=== PATIENT | male | born 1990 | race Caucasian/White ===

== ENCOUNTER 2022-08-13 18:29 | Emergency (ER) | payer OTHER ==
[~2022-08-13] VITALS: Ht 172.7 cm; Wt 68.5 kg
[2022-08-13] MEDS ORDERED: ACULAR LS5 ML OD (22:22)
== END 2022-08-13 22:46 | disposition home or self-care (01) ==
LOC: ED 18:29
DX: T15.01XA Foreign body in cornea, right eye, initial encounter (principal); W45.8XXA Other foreign body or object entering through skin, initial encounter
CPT/HCPCS: 65222; 99283-25

== ENCOUNTER 2022-09-02 10:15 | Observation (INO) | payer OTHER ==
[~2022-09-02] VITALS: Ht 185.4 cm; Wt 88.0 kg
[~2022-09-02 10:15] MED LIST: ACULAR LS5 ML OD
--- OUTSIDE RECORDS SUMMARY | 2022-09-02 10:22 | XMS ---
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 Ligia has no Care Guidelines for this patient. Andre VISIT COUNT ([address] [facility] TOTAL 2 NOTE: Visits indicate total known visits. ED/C VISIT TRACKING (12 MO.) 09/02/2022 10:16 [facility] [place] TYPE: Emergency COMPLAINT: - R ARMPIT PAIN 08/13/2022 18:[address] [facility] [place] TYPE: Emergency COMPLAINT: - R EYE INJ DIAGNOSES: - Foreign body in cornea, right eye, initial encounter - Other foreign body or object entering through skin, initial encounter INPATIENT VISIT TRACKING (12 MO.) No inpatient visits to display in this time frame [id number]
--- NOTE | 2022-09-02 15:04 | NUR ---
RECIEVED HAND OFF REPORT FROM MARCIA HILL.
--- NOTE | 2022-09-02 15:46 | NUR ---
PT ARRIVED TO ROOM 114, VIA WHEELCHAIR W/ GROUP HOME GUARDS.
[2022-09-02] MEDS ORDERED: CELEXA10 MG PO (17:02)
[2022-09-02] MEDS ORDERED: MELATONIN1 MG PO (17:02)
[2022-09-02] MEDS ORDERED: OXYCODONE HCL5 MG PO (17:19)
--- NOTE | 2022-09-02 17:32 | NUR ---
MED REC COMPLETE
--- NOTE | 2022-09-02 19:19 | NUR ---
pt awake, alert and orineted, redness r upper shoulder, arm, axillary area and front R chest. chlorhenedine wipe down done. Anesthesis in room with pt. wearing wrist shackles, 2 EOCI guards in room. preop-post op expectations given verbally to pt. Semireceptive 1919 - Pt down to surgery at this time.
--- NOTE | 2022-09-02 20:11 | NUR ---
pt alert and oriented, drowsy, opens eyee easily, denies c/o pain or any discomofrt. On room air, clear lungs, post op cpox in place, Rabd TT draining bile colored scant amont, BARB with scant amount of ss drainage. ACticot dressing covered with opsite and 2 lap sites covered with gauze. lizett, denies passing gas, abd tender, soft. f/c draining dark colored oily orange colored urine. f/c not chronic. scds in place, Pt tolerating sips of fluids well, no emesis. Family in room.
--- NOTE | 2022-09-02 20:14 | NUR ---
09/02/222013 Bria Sandoval 2008-PATIENT ARRIVES TO PACU ON 8L VIA MASK. OPA IN PLACE. RESP EVEN AND UNLABORED. O2 SATS AT 100%. 2010-PATIENT IS NONAROUSABLE. O2 DECREASED TO 6L VIA MASK. OPA IN PLACE. RESP EVEN AND UNLABORED.
--- NOTE | 2022-09-02 20:30 | NUR ---
drowsy, IVf infusing took sips of fluids, IVF infusing w/o problems. Dressing to R axillary area with shadowinig ss drainage. red area warm to touch tender, edges marked. alert an oriented on room air, post op cpox, cooperative with assessment. 2EOCI guards in room
--- NOTE | 2022-09-02 21:47 | NUR ---
2104 - back to room 114 from PACU, drowsy, was medicated prior to moving back to [place], c/o pain R arm. R chest, arm, axillary area tender, red, edges marked. I&D to R axillary abscess covered w Iodoform/gauze covered wtih surgical tape and fernie draina in place. small amount of ss drainage noted. arm elevated in pillows above chest. IVF infusing LAC 2139 - medicated with Ibuprofen and sips of fluids, ice chips at bedside. continues to questions why he is not getting the same pain meds as he was in the custodial, clarified, and he goes back to the same question. explained several times, not very receptive. 2EOCI guards inroom.
--- NOTE | 2022-09-02 22:20 | NUR ---
Talked to Dr Soriano, clarification of diet, can be on regular diet and have Pharmacy configure the Vancomycin dosage.
--- NOTE | 2022-09-02 22:44 | NUR ---
c/o 10/10 R arm pain,medicated with dDilaudid 0.6mg IV. Right arm elevated in pillows above the heart. dressing axillary area intact, improved redness as per marking. area warm to touch, tender. dressing with old shadowing, water, apple juice and sandwich box given. 2 EOCI guards in room
--- NOTE | 2022-09-03 00:18 | NUR ---
PT UP TO EDGE OF BED AND STANDING UP, USED URINAL AND VOIDED LARGE AMOAUNT QS DARK YELLOW URINE. BACK TO BED, ON ROOM AIR, CPOX IN PLACE, MUCH IMPROVED EDEMA AND REDNASS NOTED BACK OF R ARM AND FROMT AREA, DRESSING WITH OLD DRAINAGE. ELEVATED, GOOD CMS. IVF INFUSING. SCDS IN PLACE, FLUIDS AT BEDSIDE, TOLERATED SANDWICH BOX CONTENTS AND JUICE, NO EMESIS. COOPERATIVE, CALMER, [address]
--- NOTE | 2022-09-03 01:29 | NUR ---
pt repositioned in bed, ivf infusing LAC, R arm elevated decreaesd edema and redness noted, dressing with old drainage. good CMS. medicated per c/o 07/03 R arm, with [place]. tolerating fluids well, snacks given on request. SCDS in place, wearing wrist and ankle metal restraints as per EOCI protocol, 2 EOCI guars in room
--- NOTE | 2022-09-03 04:15 | NUR ---
Pt awake, c/o 9/10 R arm pain, medicated with Ibuprofen R arm elevated in pillows, good cms, decreaed redness and edema, dressing with old drainage. moving arms, tender to touch. IVF infusing LAC. tolerating liquids and diet, repositions self in bed, has voided QS. wearing metal shackles wrists and ankles, voiding QS
--- NOTE | 2022-09-03 05:04 | NUR ---
PT HAD AN I&D R AXILLARY ABSCESS, WAS VERY RED EDEMATOUS AND TENDER TO TOUCH. CURRENTLY MUCH IMPROVED DECREAED REDNESS,ERYTHEMA ND TENDERNESS, DRESSING WITH SEROSANGUINEOUS DRAINAGE REINFORCED. GOOD CMS, MOVES ARM WELL. IVF INFUSING LAC, IV IS AN ULTRASOUND GUIDED IV SITE. NO ADVERSER EACTION TO IV ABX. R ARM ELEVATED WITH PILLOWS, HAS BEEN MEDICATED WITH NORCO,IBUPROFEN PO AND DILAUDID IV PER PAIN CONTROL WITH FAIR TO POOR PAIN CONTROL. TOLERATING LIQUIDS AND DIET WELL. SCDS IN PLACE, HAS VOIDED QS USING URINAL, WEARING WRIST AND ANKLE METAL SHACKLES , ON ROOM AIR, LUNGS CLEAR BILAT. 2 EOCI GUARS IN ROOM
--- NOTE | 2022-09-03 07:16 | NUR ---
H&P and surgery note faxed to [facility].
--- NOTE | 2022-09-03 07:20 | NUR ---
BEDSIDE REPORT FROM HARSHAD RN, PT WITH BARBIE X2 AND EOCI RESTRAINTS. DENIES NEEDS, DRSG TO R SURGICAL AREA COVERED WITH OLD SEROUS DRAINAGE NOTED. ITRODUCED TO NEW DAY SHIFT STAFF, CALL LIGHT IN REACH.
--- NOTE | 2022-09-03 08:37 | NUR ---
Patient resting with eyes open and was in no distress. Patient stated that he was experiencing right arm pain. He rated the pain 7/10 at rest; 10/10 with movement. Patient noted that he had felt drainage leaking from his wound dressings. Primary nurse stated that we will reinforce surgical dressing with ABD. Patient currently eating their breakfast and personal supplies and call-light within reach.
--- NOTE | 2022-09-03 11:45 | NUR ---
Spoke with pt and he denies use of any DME. I did speak with Dr. Quick this am and pt needs to transition to po antibiotics possibly today.
--- NOTE | 2022-09-03 11:46 | NUR ---
Patient resting in bed. Patient currently rates pain at 7/10 while resting. Plan to administer next pain medication at 13:00. Patient is okay with this plan. The reinforced ABD was saturated with serosanguineous drainage. Patient requested snack. Provided snack and patient ate 100%. Patient's personal supplies and call-light within reach.
--- NOTE | 2022-09-03 11:55 | NUR ---
pt has no changes, gaurds in room, pt anticipates next pain med as scheduled.
--- NOTE | 2022-09-03 12:05 | NUR ---
new abd pad placed under r arm to catch serosang. drainage from surgical wound. refreshed water and juice. iv via pump wnl.
--- NOTE | 2022-09-03 12:16 | NUR ---
DR WAYNE IN TO REMOVE PACKING FROM RIGHT AXILLA SURGERY WOUND, PT WAS IN PAIN 10/10 4 MG MS IV GIVEN PER VERBAL ORDER NOW. RE DRESSED WOUND - POPPY IN PLACE. PT NOW EATING LUNCH AND MORE RELAXED. CALL LIGHT IN REACH.
--- NOTE | 2022-09-03 13:11 | NUR ---
pt reports pain after dr removed packing in right armpit - 2 percocet given per order with food/water. pt appreaciated.
--- NOTE | 2022-09-03 13:45 | NUR ---
PATIENT IN BED AFTER MEAL. VITALS AND I/O'S COMPLETED, TWO SECURITY OFFICERS IN ROOM. PT HAS NO OTHER NEEDS AT THIS TIME. CALL LIGHT WITHIN REACH.
--- NOTE | 2022-09-03 13:56 | NUR ---
pt reports pain improved, iv orlino fusing - call light in reach - denies needs.
--- NOTE | 2022-09-03 15:38 | NUR ---
Called and spoke with Nurse Monteiro, nacho Quick is working on orders for discharge. Pt will need showers and oral antibiotics. Pt is accepted to return and orders may be placed in an envelope with the pink sheet and do not need to be faxed.
[2022-09-03] MEDS ORDERED: IBUPROFEN600 MG PO (15:47)
[2022-09-03] MEDS ORDERED: DOXYCYCLINE HY100 MG PO (15:47)
[2022-09-03] MEDS ORDERED: LEVOFLOXACIN500 MG PO (15:47)
[2022-09-03] MEDS ORDERED: OXYCODON-ACETA1 EAC2 PO (15:47)
[2022-09-03] MEDS ORDERED: ACETAMINOPHEN500 MG PO (15:48)
--- NOTE | 2022-09-03 16:25 | NUR ---
pt ready for dc to eoci - iv dc intact - instructions for dc to return reviewed with pt, michelg re enforced, motrin and levoquin started po.
--- NOTE | 2022-09-03 16:43 | NUR ---
report to nigel miller at [facility] -
--- NOTE | 2022-09-05 12:36 | HP ---
[facility] [address], [place] [address] Signed ADMISSION DATE: 09/02/2022 REASON FOR ADMISSION: Persistent axillary abscess; cellulitic changes and history of recent abscess drainage. HISTORY OF PRESENT ILLNESS: This 32-year-old man is a prisoner at the [facility]. He has had several days of increasing swelling and pain in the right axilla. He presented to the emergency room today having undergone incision and drainage of an axillary abscess yesterday in the long term in the clinic setting. He had advancing erythema of the axillary skin and arm. Evaluation by Dr. Sanchez included a CT scan. The skin thickening and ulceration adjacent to a small fluid collection, subcutaneous fat measuring 1.4 cm x 3.9 cm was noted. The findings were consistent with an abscess based on Dr. Blas, the radiologist. Diffuse extensive skin thickening and edema of the subcutaneous fat within the remainder of the right axilla and along the proximal right upper extremity was also noted. There were many mildly enlarged reactive axillary nodes as well. The patient has had a staph infection of the right hand in the distant past. He did incidentally have a noncalcified solid nodule within the superior segment of the right lower lobe of 4 mm in size. PAST MEDICAL HISTORY: Relatively unremarkable. He does have a distant history of drug abuse. He has had surgery on the left wrist as well, he says. REVIEW OF SYSTEMS: He denies any shortness of breath or chest pains and no fever or chills. No shortness of breath. He does have significant pain in the right deltoid area, axilla, and right upper arm. PHYSICAL EXAMINATION: GENERAL: A fit and healthy-appearing white man, who looks to be uncomfortable. NECK: Trachea is midline. CHEST: Shows normal respiratory excursion. Pulses regular. EXTREMITIES: Left arm and right arm on observation are comparatively different with the right arm more swollen. He has erythema of the right pectoral area as well as the right upper arm and swelling in the right axilla. There is an incision noted from prior drainage procedure yesterday. Extremities otherwise show no clubbing, cyanosis, or edema. LABORATORY DATA: Electronically Signed By: AQUILES WAYNE MD 09/05/22 1236 PATIENT NAME: DAX PARIS HISTORY AND PHYSICAL DATE OF : [birth year] REPORT #: [id number] PHYSICIAN: AQUILES WAYNE MD PCP: SOLOMON CRUZ MD REPORT IS CONFIDENTIAL AND NOT TO BE RELEASED WITHOUT AUTHORIZATION [facility] [address], [place] [address] Signed Lab studies performed in the emergency room today show white count of 12.0, hematocrit 35.2, platelets 164,000. Electrolytes normal. Creatinine 1.0. I have reviewed the CT scan, which are somewhat unintelligible on my examination. The report from the radiologist is reviewed as well. ASSESSMENT: The patient has probably incompletely drained axillary abscess for which a drainage under local was performed at the long term. A more thorough evaluation and breakdown of loculations of purulent material would be well-advised under anesthetic rather than local anesthesia. The risks of bleeding, infection, nerve injury, need for additional operative intervention, and placement of drains as reviewed in detail. He understands and wishes to proceed. Given the findings, we will plan to do this tonight rather than waiting for tomorrow morning. Aquiles Wayne MD JM/MODL /[id number] cc: [facility] Amador Sanchez MD Copies: AMADOR SANCHEZ MD ~ Electronically Signed By: AQUILES WAYNE MD 09/05/22 1236 PATIENT NAME: DAX PARIS HISTORY AND PHYSICAL DATE OF : [birth year] REPORT #: [id number] PHYSICIAN: AQUILES WAYNE MD PCP: SOLOMON CRUZ MD REPORT IS CONFIDENTIAL AND NOT TO BE RELEASED WITHOUT AUTHORIZATION
--- NOTE | 2022-09-05 12:36 | OR ---
[facility] [address], [place] [address] Signed DATE OF OPERATION: 09/02/2022 SURGEON: Aquiles Wayne MD PREOPERATIVE DIAGNOSIS: Recent right axillary abscess drainage with persistent abscess collection. POSTOPERATIVE DIAGNOSIS: Recent right axillary abscess drainage with persistent abscess collection. PROCEDURE: 1. Right axillary abscess drainage. 2. Placement of quarter-inch loop [place] drain with irrigation and packing. ANESTHESIA: General, LMA; Kahlil Galvin CRNA. INDICATION: This 32-year-old white man is a prisoner at [facility]. He has been on three days of ceftriaxone antibiotic for increasing erythema of his right axilla. He had an incision and drainage of an abscess for which he has had persistent worsening symptoms lately. 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 He presented to the emergency room, was evaluated by Dr. Sanchez. Imaging study included a CT scan, which is difficult for me to fully understand, but a collection of nearly 4 cm of undrained purulence was considered possible. He has been fluid resuscitated, given intravenous antibiotic vancomycin and is now to undergo incision and drainage and debridement as appropriate of right axillary incomplete drainage of abscess. The risks of bleeding, infection, nerve injury, muscle injury, and so forth were reviewed with him in detail. He understands wished to proceed. FINDINGS: Incision was of the right axilla was a good when it was extended a bit, however. Interrogation of the axilla with digital examination revealed no large pus pocket, though Gram-stain and cultures were obtained of purulent material that was noted. Notably, the pectoralis muscle was impressively hypertrophied. I believe related to hypertrophy rather than edema or swelling. Muscle fibers were to assure there was no intramuscular abscess and there was none. A counterincision was made allowing for placement of the loop [place] drain. Irrigation was undertaken. The wound packed for hemostatic benefit. Electronically Signed By: AQUILES WAYNE MD 09/05/22 1236 PATIENT NAME: DAX PARIS OPERATIVE REPORT DATE OF : [birth year] REPORT #: [id number] PHYSICIAN: AQUILES WAYNE MD PCP: SOLOMON CRUZ MD REPORT IS CONFIDENTIAL AND NOT TO BE RELEASED WITHOUT AUTHORIZATION [facility] [address], [place] [address] Signed DESCRIPTION OF PROCEDURE: The patient was brought to the operating room, given a general LMA type anesthetic. The entire right arm and axilla and chest wall were prepared with a Betadine solution and draped sterilely. The previous incision of the right axilla was interrogated with digital examination. An incision was relatively small, relative to the finger and was extended a bit. Probing of the wound was undertaken showing no clot, but the acute inflammatory changes and some purulence. The areas in question were Gram-stain and cultured. Further interrogation of the axilla showed the pectoralis muscle to be impressively large and bulging and suggestive of possible intraparenchymal abscess. Along the muscle fibers, a tonsil clamp was placed and interrogation of the muscle bed showed no sign of fluid collection or abscess. The muscle appeared to be simply hypertrophied related to his body building and so on. Irrigation was then undertaken within the axillary wound. A counterincision was made inferiorly and a quarter-inch [place] drain was placed and tied in a loop. Irrigation was undertaken with sterile saline. Both wounds were packed with iodoform gauze for its hemostatic benefit. The wound was dressed with fluff gauze and ABD pads. Notably at conclusion of the procedure, the erythema and swelling of the right arm and axilla appeared to be much improved despite not really draining a large abscess collection. Blood loss was less than 20 mL. Sponge, needle, and instrument counts reported as correct x3. MD EDGAR Vann/SHREYASL /[id number] cc: Amador Sanchez MD Copies: AMADOR SANCHEZ MD ~ Electronically Signed By: AQUILES WAYNE MD 09/05/22 1236 PATIENT NAME: DAX PARIS OPERATIVE REPORT DATE OF : [birth year] REPORT #: [id number] PHYSICIAN: AQUILES WAYNE MD PCP: SOLOMON CRUZ MD REPORT IS CONFIDENTIAL AND NOT TO BE RELEASED WITHOUT AUTHORIZATION
== END 2022-09-03 16:25 | disposition home or self-care (01) ==
LOC: ED 10:15 → MS 10:17
PROVIDERS: ADMIT Surgery; ATTEND Surgery
PROC: 0J9D0ZZ Drainage of Right Upper Arm Subcutaneous Tissue and Fascia, Open Approach (ICD-10-PCS; principal; 2022-09-02 19:50)
DX: L02.411 Cutaneous abscess of right axilla (principal); Z20.822 Contact with and (suspected) exposure to COVID-19; Z88.0 Allergy status to penicillin; Z91.040 Latex allergy status
CPT/HCPCS: 36415; 80053; 85025; 94762; A9270; C9803; J1170; J1885; J2001; J2185; J2250; J2270; J2405; J2704; J3010; J3370; J7030; J7060; J7121; Q9967; U0003